=== PATIENT | female | born 1990 | race Caucasian/White ===

== ENCOUNTER 2017-08-01 17:39 | Emergency (ER) | payer MEDICAID ==
[~2017-08-01] VITALS: Ht 162.6 cm; Wt 132.0 kg
[~2017-08-01 17:39] MED LIST: AMOX/K CLAV875 M1 PO; AUGMENTIN500TAB PO; AVELOX400 MG PO; BACTRIM DS1 TAB PO; CIPRO500 MG OR; CLEOCIN300 MG PO; CORTISPORIN OTI10 M1 OT; DOXYCYCL HYC100 MG PO; FERROUS SULF325 M1 PO; FLUZONE SPLT1 M1 IM; HEMAX OR; HEMAX PO; KEFLEX500 M1 PO; KEFLEX500 MG PO; LEVAQUIN500 MG PO; LORTAB 1010 MG PO; LORTAB 5 OR; LORTAB 7.57.5 MG PO; LORTAB5 PO; MACRODANTIN100 MG OR; MACRODANTIN100 MG PO; METROGEL VAG0.75 % VA; MOTRIN800 MG/TAB PO; NAPROSYN500 MG PO; NO; NO HOME MEDICATION; NO HOME MEDS; PRENATA3 PO; ROCEPHIN1 G1 IV; ULTRAM50 M1 PO; ULTRAM50 MG PO; ZOFRAN ODT8 MG PO
[2017-08-01] MEDS ORDERED: ZPAK PO (18:16)
[2017-08-01] MEDS ORDERED: PROAIR HFA108 MCG/AC PO (18:16)
[2017-08-01] MEDS ORDERED: PREDNISONE50 MG PO (18:16)
[2017-08-01 18:30] VITALS: BP 144/77
== END 2017-08-01 18:30 | disposition home or self-care (01) | DRG 203 ==
LOC: ED 17:39
DX: J40 Bronchitis, not specified as acute or chronic (principal); F17.290 Nicotine dependence, other tobacco product, uncomplicated; R05 Cough; R06.02 Shortness of breath; R09.81 Nasal congestion